=== PATIENT | male | born 1970 | race Caucasian/White ===

== ENCOUNTER 2020-09-21 06:26 | Day surgery (SDC) | payer BC ==
[~2020-09-21 06:26] MED LIST: Lactated Ringers 1,000 ML IV SCH
[2020-09-21] MEDS ORDERED: Propofol 200 MG/20 ML SDV ONE ×2 (07:02→08:27)
[2020-09-21] MEDS ORDERED: Dexamethasone 4 MG/ML 5 ML MDV ONE (07:02)
--- NOTE | 2020-09-21 07:37 | PCM.PREANE ---
Preanesthetic Assessment - Anesthesia/Transfusion/Family Hx Anesthesia History: Prior Anesthesia Without Reaction Transfusion History: No Prior Transfusion(s) - Review of Systems General: No Symptoms Pulmonary: No Symptoms Cardiovascular: No Symptoms Gastrointestinal: No Symptoms Neurological: No Symptoms Other: Reports: None - Physical Assessment NPO Status Date: 09/21/20 NPO Status Time: 00:00 Vital Signs: Last Vital Signs Temp 97.2 F 09/21/20 06:41 Pulse 68 09/21/20 06:41 Resp 16 09/21/20 06:41 BP 131/85 09/21/20 06:41 Pulse Ox 95 09/21/20 06:41 Height: 5 ft 9 in Weight: 295 lb ASA Class: 3 Mental Status: Alert & Oriented x3 Airway Class: Mallampati = 3 Dentition: Reports: Normal Dentition ROM/Head Extension: Full Lungs: Clear to Auscultation, Normal Respiratory Effort Cardiovascular: Regular Rate, Regular Rhythm - Allergies Allergies/Adverse Reactions: Allergies Allergy/AdvReac Type Severity Reaction Status Date / Time No Known Allergies Allergy Verified 09/17/20 08:29 - Acknowledgements Anesthesia Type Planned: General Anesthesia Pt an Appropriate Candidate for the Planned Anesthesia: Yes Alternatives and Risks of Anesthesia Discussed w Pt/Guardian: Yes Pt/Guardian Understands and Agrees with Anesthesia Plan: Yes PreAnesthesia Questionnaire HEENT History: Reports: Other (See Below) Other HEENT History: wears glasses Cardiovascular History: Reports: Hypertension Respiratory History: Reports: Sleep Apnea Other Respiratory History: uses CPAP Gastrointestinal History: Reports: None Genitourinary History: Reports: None Musculoskeletal History: Reports: Fracture Other Musculoskeletal History: hx fx ankle and collarbone Neurological History: Reports: None Psychiatric History: Reports: None Endocrine/Metabolic History: Reports: Obesity/BMI 30+ Hematologic History: Reports: None Immunologic History: Reports: None Oncologic (Cancer) History: Reports: None Dermatologic History: Reports: None - Past Surgical History Head Surgeries/Procedures: Reports: None HEENT Surgical History: Reports: None Cardiovascular Surgical History: Reports: None Respiratory Surgical History: Reports: None GI Surgical History: Reports: Cholecystectomy Male Surgical History: Reports: Vasectomy Endocrine Surgical History: Reports: None Neurological Surgical History: Reports: None Musculoskeletal Surgical History: Reports: None Oncologic Surgical History: Reports: None Dermatological Surgical History: Reports: None - SUBSTANCE USE Tobacco Use Status *Q: Current Every Day Tobacco User Tobacco Use Within Last Twelve Months: Cigarettes - HOME MEDS Home Medications: Home Meds Ketoconazole 1 applic HE ASDIRECTED 09/17/20 [History] - CURRENT (IN HOUSE) MEDS Current Meds: Current Medications Lactated Ringer's (Ringers, Lactated) 1,000 mls @ 125 mls/hr IV ASDIRECTED ELLIOT Last Admin: 09/21/20 06:50 Dose: 125 mls/hr Documented by: Discontinued Medications Dexamethasone (Dexamethasone 4 Mg/Ml 5 Ml Mdv) Confirm Administered Dose 20 mg .ROUTE .STK-MED ONE Stop: 09/21/20 07:03 Lidocaine HCl (Lidocaine 1% 5 Ml Sdv) Confirm Administered Dose 5 ml .ROUTE .STK-MED ONE Stop: 09/21/20 07:02 Propofol (Propofol 200 Mg/20 Ml Sdv) Confirm Administered Dose 400 mg .ROUTE .STK-MED ONE Stop: 09/21/20 07:03
[2020-09-21] MEDS ORDERED: Lactated Ringers 1,000 ML IV SCH (08:45)
--- NOTE | 2020-09-21 08:48 | PCM.OPNOTE ---
- General Post-Op/Procedure Note Date of Surgery/Procedure: 09/21/20 Operative Procedure(s): Colonoscopy with cold distal transverse colon, proximal descending colon and rectal polypectomies. Pre Op Diagnosis: Desire for colorectal cancer screening Post-Op Diagnosis: Distal transverse colon, proximal descending colon and rectal polyps. Anesthesia Technique: MAC (ASA III) Primary Surgeon: Murray Mejia Condition: Good Free Text/Narrative:: DICTATION [id number] CPT CODE 12283
--- NOTE | 2020-09-21 08:52 | PCM.POSTAN ---
POST ANESTHESIA ASSESSMENT - MENTAL STATUS Mental Status: Alert, Oriented - VITAL SIGNS Vital Signs: Last Vital Signs Temp 97.2 F 09/21/20 06:41 Pulse 62 09/21/20 08:48 Resp 14 09/21/20 08:48 BP 125/71 09/21/20 08:48 Pulse Ox 93 L 09/21/20 08:48 - RESPIRATORY Respiratory Status: Respiratory Rate WNL, Airway Patent, O2 Saturation Stable - CARDIOVASCULAR CV Status: Pulse Rate WNL, Blood Pressure Stable - GASTROINTESTINAL GI Status: No Symptoms - POST OP HYDRATION Hydration Status: Adequate & Stable
--- NOTE | 2020-09-21 08:52 | PCM48HPAN ---
Post Anesthesia Note - EVALUATION WITHIN 48HRS OF ANESTHETIC Vital Signs in Normal Range: Yes Patient Participated in Evaluation: Yes Respiratory Function Stable: Yes Airway Patent: Yes Cardiovascular Function Stable: Yes Hydration Status Stable: Yes Pain Control Satisfactory: Yes Nausea and Vomiting Control Satisfactory: Yes Mental Status Recovered: Yes Vital Signs: Last Vital Signs Temp 97.2 F 09/21/20 06:41 Pulse 62 09/21/20 08:48 Resp 14 09/21/20 08:48 BP 125/71 09/21/20 08:48 Pulse Ox 93 L 09/21/20 08:48
--- NOTE | 2020-09-21 10:29 | OR ---
SURGEON: Murray Mejia M.D. DATE OF PROCEDURE: 09/21/2020 OPERATION PERFORMED: Colonoscopy with cold distal transverse colon, proximal descending colon, and rectal polypectomy. PRIMARY SURGEON: Murray Mejia MD ANESTHESIA: MAC. ASA CLASSIFICATION: III. PREOPERATIVE DIAGNOSIS: Desire for colorectal cancer screening. POSTOPERATIVE DIAGNOSES: 1. Distal transverse colon polyp. 2. Proximal descending colon polyp. 3. Rectal polyp. DESCRIPTION OF PROCEDURE: The patient was taken to the endoscopy room and positioned on the endoscopy table in the left lateral decubitus position. Time-out was called for appropriate identification of patient and procedure. Monitored anesthesia care was provided. Colonoscope was inserted into the rectum and advanced with minimal difficulty to the cecum. The cecum was identified by internal landmarks and external pressure. The colonoscope was retroflexed to visualize the ascending colon from below, then straightened, and slowly withdrawn. The cecum, ascending colon, and proximal and mid transverse colon showed no tumors, polyps, diverticula, or angiodysplastic changes. One polyp was encountered in the distal transverse colon and removed with cold biopsy forceps. A second polyp was encountered in the proximal descending colon and removed with cold biopsy forceps. The remainder of the descending colon and sigmoid colon showed no tumors, polyps, diverticula, or angiodysplastic changes. Once the colonoscope was withdrawn to the rectum, another polyp was encountered and again removed with cold biopsy forceps. The colonoscope was then withdrawn to the distal rectum and retroflexed to visualize the anal orifice from above. No tumors, polyps, or acute hemorrhoidal changes were noted. The colonoscope was then straightened, the rectum aspirated, and the colonoscope removed. The patient tolerated the procedure well and was taken to recovery room in stable condition. ALEJANDRO / QUINN /[id number]
== END 2020-09-21 09:20 | disposition home or self-care (01) ==
LOC: MW.SDS 06:26
PROVIDERS: ATTEND Surgery
DX: Z12.11 Encounter for screening for malignant neoplasm of colon (principal); D12.4 Benign neoplasm of descending colon; K62.1 Rectal polyp; I10 Essential (primary) hypertension; G47.30 Sleep apnea, unspecified; E66.01 Morbid (severe) obesity due to excess calories; F41.9 Anxiety disorder, unspecified; F17.210 Nicotine dependence, cigarettes, uncomplicated; Z79.899 Other long term (current) drug therapy; Z98.890 Other specified postprocedural states; Z68.41 Body mass index [BMI] 40.0-44.9, adult
CPT/HCPCS: 45380; 88305; J1100; J2704; J7120; 00812

== ENCOUNTER 2020-11-12 10:13 | Emergency (ER) | payer BC ==
[2020-11-12 13:07] LABS: BLOOD UREA NITROGEN,BUN 12 mg/dL (7.0-18.0); CARBON DIOXIDE,CO2 27.4 mmol/L (21.0-32.0); CHLORIDE,CL 103 mmol/L (98-107); GLUCOSE RANDOM 111 mg/dL (74-106); POTASSIUM,K 3.5 mmol/L (3.5-5.1); SODIUM,NA 142 mmol/L (136-148)
--- NOTE | 2020-11-12 13:07 | EDM.PDOC ---
ED HPI GENERAL MEDICAL PROBLEM - General Chief Complaint: General Stated Complaint: LFT SIDE PAIN AND ALMOST PASSED OUT Time Seen by Provider: 11/12/20 13:03 Source of Information: Reports: Patient History Limitations: Reports: No Limitations - History of Present Illness INITIAL COMMENTS - FREE TEXT/NARRATIVE: HISTORY AND PHYSICAL: History of present illness: Patient is a 50-year-old male who presents to the emergency room with complaints of left flank and side pain. He states pain started all of a sudden just a few hours prior to arrival and stated "it was so bad I almost passed out". He reports he felt diaphoretic and nauseated. Currently states the pain is bearable but now has the flank tenderness and feels like it is radiating into his left mid abdomen. Denies any injury, trauma or falls. Patient denies any fever, chills, headache, change in vision, syncope or near syncope. Denies any chest pain, shortness of breath or cough. Denies any vomiting, diarrhea, constipation or dysuria. Denies any testicular pain, redness or tenderness. Has not noted any blood in urine or stool. Patient has been eating and drinking appropriately. Review of systems: As per history of present illness and below otherwise all systems reviewed and negative. Past medical history: As per history of present illness and as reviewed below otherwise noncontributory. Surgical history: As per history of present illness and as reviewed below otherwise noncontributory. Social history: See social history for further information Family history: As per history of present illness and as reviewed below otherwise noncontributory. Physical exam: General: Well developed and well nourished 50 year old male. Alert and orientated x 3. Nontoxic in appearance and in no acute distress. Vital signs are stable and have been reviewed by me. Nursing notes were reviewed. HEENT: Atraumatic, normocephalic, pupils equal and reactive bilaterally, negative for conjunctival pallor or scleral icterus, mucous membranes moist, trachea midline. No drooling or trismus noted. No meningeal signs. No hot potato voice noted. Lungs: Clear to auscultation bilaterally. No wheezes, rales, or rhonchi. Chest nontender. Normal work of breathing, no accessory muscles used. Heart: S1S2, regular rate and rhythm without overt murmur, gallops, or rubs. No JVD. No peripheral edema Abdomen: Soft, nondistended, nontender. Normoactive bowel sounds. Negative for masses. Left sided costovertebral tenderness. Skin: Intact, warm, dry. No lesions or rashes noted. Hematologic: No petechiae or purpra. Mucosa appropriate color and normal nail bed color and refill. Extremities: Atraumatic, moves all extremities per self without difficulty or deficits, negative for cords or calf pain. Neurovascular unremarkable. Neuro: Awake, alert, oriented. Cranial nerves II through XII unremarkable. Cerebellum unremarkable. Motor and sensory unremarkable throughout. Exam nonfocal. Psychiatric: Mood and affect are appropriate. Normal thought process. Answering questions appropriately. Please note that the patient was seen and evaluated during the 2019 SARS-CoV-2 novel coronavirus pandemic period. Community viral transmission is ongoing at time of this encounter and the emergency department is operating under pandemic response procedures. Medical Decision Making: Patient is a 50-year-old male who presents to the emergency room with complaints of left sided flank pain. When pain first started he states it was severe, states it is now tolerable and is improving. The emergency room is very busy, I did briefly look at him during the triage process and was able to put orders in. Upon his placement in the emergency department he states his pain is improved. I do note that he has blood in his urine, will do a CT of the abdomen and pelvis to rule out kidney stone. Patient declines wanting anything for pain or nausea at this time. CT of the abdomen and pelvis shows a 5 mm obstructing stone in the proximal left ureter with minimal left pelvocaliectasis. Urine shows hematuria with 0-1 WBC and +[address] on doxycycline. I have talked with the patient about today's findings, in addition to providing specific details for plan of care. Reassessment at the time of disposition demonstrates that the patient is in no acute distress. The patient is stable for discharge, counseling was provided and we discussed in great detail signs and symptoms that would prompt them to return to the Emergency Department. I did give him local phone numbers for follow-up with urology. Urine strainer with education was given. Medication, follow up and supportive care measures were reviewed and discussed. Voices understanding and is agreeable to plan of care. Denies any further questions or concerns at this time. Diagnostics: CBC, CMP, UA, CT abdomen and pelvis Therapeutics: Flomax Prescription: Flomax, Doxycylcine, [place], Zofran Impression: Kidney stone, left Plan: 1. You were evaluated today on an emergent basis. Your CT shows a 5mm kidney stone on the left. Please call Urology to set up a follow up appointment. Increase your oral fluids. Take your medications as directed. 2. You can alternate Tylenol and ibuprofen as needed for pain and fever management. 3. We encourage you to follow up with your primary care provider and/or recommended specialist in the next few days for re-evaluation and further care/management. 4. If your symptoms should worsen, new symptoms develop or any of the signs and symptoms we discussed should arise please return to the emergency room or call [phone] (if needed). Definitive disposition and diagnosis as appropriate pending reevaluation and review of above. left side Pain Score (Numeric/FACES): 7 - Related Data Allergies Allergy/AdvReac Type Severity Reaction Status Date / Time No Known Allergies Allergy Verified 11/12/20 10:28 Home Meds: Home Meds Ketoconazole 1 applic HE ASDIRECTED 09/17/20 [History] Doxycycline [Vibra-Tabs] 100 mg PO Q12HR 7 Days #14 tab 11/12/20 [Rx] Hydrocodone/Acetaminophen [HYDROcodone-Acetaminophen 5-325 MG] 1 - 2 tab PO Q4HR PRN #20 tablet 11/12/20 [Rx] Ondansetron [Zofran ODT] 4 mg PO Q6H PRN #8 tab.dis 11/12/20 [Rx] PARoxetine [Paxil] 20 mg PO DAILY 11/12/20 [History] Tamsulosin [Tamsulosin 24 Hr] 0.4 mg PO DAILY 5 Days #5 cap.er 11/12/20 [Rx] Past Medical History HEENT History: Reports: Other (See Below) Other HEENT History: wears glasses Cardiovascular History: Reports: Hypertension Respiratory History: Reports: Sleep Apnea Other Respiratory History: uses CPAP Gastrointestinal History: Reports: None Genitourinary History: Reports: None Musculoskeletal History: Reports: Fracture Other Musculoskeletal History: hx fx ankle and collarbone Neurological History: Reports: None Psychiatric History: Reports: None Endocrine/Metabolic History: Reports: Obesity/BMI 30+ Hematologic History: Reports: None Immunologic History: Reports: None Oncologic (Cancer) History: Reports: None Dermatologic History: Reports: None - Infectious Disease History Infectious Disease History: Reports: Chicken Pox - Past Surgical History Head Surgeries/Procedures: Reports: None HEENT Surgical History: Reports: None Cardiovascular Surgical History: Reports: None Respiratory Surgical History: Reports: None GI Surgical History: Reports: Cholecystectomy Male Surgical History: Reports: Vasectomy Endocrine Surgical History: Reports: None Neurological Surgical History: Reports: None Musculoskeletal Surgical History: Reports: None Oncologic Surgical History: Reports: None Dermatological Surgical History: Reports: None Social & Family History - Family History Family Medical History: No Pertinent Family History - Tobacco Use Tobacco Use Status *Q: Current Every Day Tobacco User Years of Tobacco use: 30 Packs/Tins Daily: 1 - Recreational Drug Use Recreational Drug Use: No ED ROS GENERAL - Review of Systems Review Of Systems: Comprehensive ROS is negative, except as noted in HPI. ED EXAM, GENERAL - Physical Exam Exam: See Below (See dictation) Course - Vital Signs Last Recorded V/S: Last Vital Signs Temp 97 F 11/12/20 14:50 Pulse 70 11/12/20 14:50 Resp 18 11/12/20 14:50 BP 147/90 H 11/12/20 14:50 Pulse Ox 95 11/12/20 14:50 - Orders/Labs/Meds Orders: Active Orders 24 hr Category Date Time Status CULTURE URINE [MREF] Stat Lab 11/12/20 11:40 Received Labs: Laboratory Tests 11/12/20 11/12/20 11/12/20 Range/Units 11:40 12:13 12:13 WBC 9.68 (4.0-11.0) K/uL RBC 5.47 (4.50-5.90) M/uL Hgb 17.4 H (13.0-17.0) g/dL Hct 48.4 (38.0-50.0) % MCV 88.5 (80.0-98.0) fL MCH 31.8 (27.0-32.0) pg MCHC 36.0 (31.0-37.0) g/dL RDW Std Deviation 41.1 (28.0-62.0) fl RDW Coeff of Imani 13 (11.0-15.0) % Plt Count 250 (150-400) K/uL MPV 10.20 (7.40-12.00) fL Neut % (Auto) 79.0 (48.0-80.0) % Lymph % (Auto) 13.1 L (16.0-40.0) % Reynolds % (Auto) 7.3 (0.0-15.0) % Eos % (Auto) 0.3 (0.0-7.0) % Baso % (Auto) 0.3 (0.0-1.5) % Neut # (Auto) 7.6 H (1.4-5.7) K/uL Lymph # (Auto) 1.3 (0.6-2.4) K/uL Reynolds # (Auto) 0.7 (0.0-0.8) K/uL Eos # (Auto) 0.0 (0.0-0.7) K/uL Baso # (Auto) 0.0 (0.0-0.1) K/uL Nucleated RBC % 0.0 /100WBC Nucleated RBCs # 0 K/uL Sodium 142 (136-148) mmol/L Potassium 3.5 (3.5-5.1) mmol/L Chloride 103 (98-107) mmol/L Carbon Dioxide 27.4 (21.0-32.0) mmol/L BUN 12 (7.0-18.0) mg/dL Creatinine 1.1 (0.8-1.3) mg/dL Est Cr Clr Drug Dosing 80.34 mL/min Estimated GFR (MDRD) > 60.0 ml/min Glucose 111 H (74-106) mg/dL Calcium 9.0 (8.5-10.1) mg/dL Total Bilirubin 0.7 (0.2-1.0) mg/dL AST 31 (15-37) IU/L ALT 50 (14-63) IU/L Alkaline Phosphatase 136 H (46-116) U/L Total Protein 8.7 H (6.4-8.2) g/dL Albumin 4.1 (3.4-5.0) g/dL Globulin 4.6 H (2.6-4.0) g/dL Albumin/Globulin Ratio 0.9 (0.9-1.6) Urine Color YELLOW Urine Appearance CLOUDY Urine pH 6.5 (5.0-8.0) Ur Specific [place] 1.025 (1.001-1.035) Urine Protein 30 H (NEGATIVE) mg/dL Urine Glucose (UA) NEGATIVE (NEGATIVE) mg/dL Urine Ketones 40 H (NEGATIVE) mg/dL Urine Occult Blood LARGE H (NEGATIVE) Urine Nitrite NEGATIVE (NEGATIVE) Urine Bilirubin SMALL H (NEGATIVE) Urine Ictotest NEGATIVE Urine Urobilinogen 1.0 (<2.0) EU/dL Ur Leukocyte Esterase TRACE H (NEGATIVE) Urine RBC >100 (0-2/HPF) Urine WBC 0-1 (0-5/HPF) Ur Epithelial Cells RARE (NONE-FEW) Urine Bacteria 2+ H (NEGATIVE) Urine Mucus LIGHT (NONE-MOD) Meds: Medications Discontinued Medications Generic Name Dose Route Start Last Admin Trade Name Freq PRN Reason Stop Dose Admin Tamsulosin HCl 0.4 mg 11/12/20 14:34 11/12/20 14:42 Tamsulosin 0.4 Mg Cap.Er PO 11/12/20 14:35 0.4 mg ONETIME ONE Administration Departure - Departure Time of Disposition: 14:37 Disposition: Home, Self-Care 01 Clinical Impression: Kidney stone on left side - Discharge Information Prescriptions: Tamsulosin [Tamsulosin 24 Hr] 0.4 mg PO DAILY 5 Days #5 cap.er Hydrocodone/Acetaminophen [HYDROcodone-Acetaminophen 5-325 MG] 1 - 2 tab PO Q4HR PRN #20 tablet PRN Reason: Pain (Moderate 4-6) Doxycycline [Vibra-Tabs] 100 mg PO Q12HR 7 Days #14 tab Ondansetron [Zofran ODT] 4 mg PO Q6H PRN #8 tab.dis PRN Reason: Nausea Instructions: Kidney Stones, [id number] Referrals: Bubba Ponce MD [Primary Care Provider] - Forms: ED Department Discharge Additional Instructions: The following information is given to patients seen in the emergency department who are being discharged to home. This information is to outline your options for follow-up care. We provide all patients seen in our emergency department with a follow-up referral. The need for follow-up, as well as the timing and circumstances, are variable depending upon the specifics of your emergency department visit. If you don't have a primary care physician on staff, we will provide you with a referral. We always advise you to contact your personal physician following an emergency department visit to inform them of the circumstance of the visit and for follow-up with them and/or the need for any referrals to a consulting specialist. The emergency department will also refer you to a specialist when appropriate. This referral assures that you have the opportunity for follow-up care with a specialist. All of these measure are taken in an effort to provide you with optimal care, which includes your follow-up. Under all circumstances we always encourage you to contact your private physician who remains a resource for coordinating your care. When calling for follow-up care, please make the office aware that this follow-up is from your recent emergency room visit. If for any reason you are refused follow-up, please contact the [facility] Emergency Department at and asked to speak to the emergency department charge nurse. Dr. Garrett and Dr Jasso [facility] [address] [place] [address] (Located on 5th Floor) [place] [address] [facility] [address] [place] [id number] [address] Gold Calderon [facility] [id number] [address] Harry Davis [facility] [address] [place] [address] Thank you for choosing the [facility] emergency department in [place] for your medical needs today. It was a pleasure caring for you. Today you were seen in the emergency department for kidney stone. 1. You were evaluated today on an emergent basis. Your CT shows a 5mm kidney stone on the left. Please call Urology to set up a follow up appointment. Increase your oral fluids. Take your medications as directed. 2. You can alternate Tylenol and ibuprofen as needed for pain and fever management. 3. We encourage you to follow up with your primary care provider and/or rona mmended specialist in the next few days for re-evaluation and further care/management. 4. If your symptoms should worsen, new symptoms develop or any of the signs and symptoms we discussed should arise please return to the emergency room or call 911 (if needed). Sepsis Event Note (ED) - Evaluation Sepsis Screening Result: No Definite Risk - Focused Exam Vital Signs: Vital Signs Temp Pulse Resp BP Pulse Ox 11/12/20 14:50 97 F 70 18 147/90 H 95 11/12/20 13:32 97 F 61 18 162/97 H 97 11/12/20 10:26 96.6 F L 65 18 113/66 98 - My Orders Last 24 Hours: My Active Orders 11/12/20 11:40 CULTURE URINE [MREF] Stat - Assessment/Plan Last 24 Hours: My Active Orders 11/12/20 11:40 CULTURE URINE [MREF] Stat
--- NOTE | 2020-11-12 14:30 | CT ---
INDICATION: Left-sided abdominal pain, hematuria. TECHNIQUE: CT of the abdomen and pelvis without intravenous contrast. Coronal and sagittal reconstructions. COMPARISON: CT of the abdomen and pelvis 01/24/2020. FINDINGS: The unenhanced liver, spleen, pancreas, and adrenal glands are normal in appearance. Cholecystectomy. No biliary dilation. There is a 5 mm obstructing stone in the proximal left ureter with minimal left pelvocaliectasis (series 201 image 92 and series 203, image 74). This represents migration of the previously seen left lower pole caliceal stone. A previously seen tiny right caliceal stone is no longer present. No right hydronephrosis or ureteral dilation. Underdistended urinary bladder. Prostate calcifications. No bowel dilation. Negative appendix. No intraperitoneal free air or fluid. No lymphadenopathy. Endplate spurring in the lower thoracic spine. The lung bases are clear. IMPRESSION: 5 mm obstructing stone in the proximal left ureter with minimal left pelvocaliectasis. Please note that all CT scans at this facility use dose modulation, iterative reconstruction, and/or weight-based dosing when appropriate to reduce radiation dose to as low as reasonably achievable. Dictated by Kinjal Duque MD @ 11/12/2020 2:28:31 PM (Electronically Signed)
[2020-11-12] MEDS ORDERED: Tamsulosin 0.4 MG Cap.ER PO ONE (14:34)
== END 2020-11-12 14:53 | disposition home or self-care (01) ==
LOC: MW.ED 10:13
DX: N20.0 Calculus of kidney (principal); I10 Essential (primary) hypertension; E66.9 Obesity, unspecified; Z68.41 Body mass index [BMI] 40.0-44.9, adult; Z72.0 Tobacco use
CPT/HCPCS: 36415; 74176; 80053; 81001; 85025; 87086; 99284; A9270

== ENCOUNTER 2021-02-09 13:03 | Emergency (ER) | payer BC ==
[2021-02-09] MEDS ORDERED: Aspirin 81 MG Tab.Chew PO ONE (13:12)
[2021-02-09] MEDS ORDERED: Morphine 4 MG/ML VIAL IVPUSH ONE ×2 (13:12→14:40)
[2021-02-09 13:39] LABS: BLOOD UREA NITROGEN,BUN 18 mg/dL (7.0-18.0); CARBON DIOXIDE,CO2 28.1 mmol/L (21.0-32.0); CHLORIDE,CL 102 mmol/L (98-107); GLUCOSE RANDOM 86 mg/dL (74-106); LIPASE 234 U/L (73-393); POTASSIUM,K 3.6 mmol/L (3.5-5.1); SODIUM,NA 139 mmol/L (136-148)
--- NOTE | 2021-02-09 14:09 | EDM.PDOC ---
ED HPI GENERAL MEDICAL PROBLEM - General Chief Complaint: Chest Pain Stated Complaint: CHEST PAINS Time Seen by Provider: 02/09/21 13:45 Source of Information: Reports: Patient History Limitations: Reports: No Limitations - History of Present Illness INITIAL COMMENTS - FREE TEXT/NARRATIVE: Patient is a 50-year-old male who presents today for epigastric pain. Patient is a pain been bothering him since yesterday has had some nausea vomiting discomfort after he has some follow lettuce that has been recalled. Became concerned when the pain became more intense. When he arrived he was slightly diaphoretic. The pain was reproducible on exam. Denies any shortness of breath fever chills leg swelling or other complaints. Took some Tylenol did not relieve the pain. Chest Pain Pain Score (Numeric/FACES): 8 - Related Data Allergies Allergy/AdvReac Type Severity Reaction Status Date / Time No Known Allergies Allergy Verified 02/09/21 13:06 Home Meds: Home Meds . [No Known Home Meds] 02/09/21 [History] Past Medical History HEENT History: Reports: Other (See Below) Other HEENT History: wears glasses Cardiovascular History: Reports: Hypertension Respiratory History: Reports: Sleep Apnea Other Respiratory History: uses CPAP Gastrointestinal History: Reports: None Genitourinary History: Reports: None Musculoskeletal History: Reports: Fracture Other Musculoskeletal History: hx fx ankle and collarbone Neurological History: Reports: None Psychiatric History: Reports: None Endocrine/Metabolic History: Reports: Obesity/BMI 30+ Hematologic History: Reports: None Immunologic History: Reports: None Oncologic (Cancer) History: Reports: None Dermatologic History: Reports: None - Infectious Disease History Infectious Disease History: Reports: Chicken Pox - Past Surgical History Head Surgeries/Procedures: Reports: None HEENT Surgical History: Reports: None Cardiovascular Surgical History: Reports: None Respiratory Surgical History: Reports: None GI Surgical History: Reports: Cholecystectomy Male Surgical History: Reports: Vasectomy Endocrine Surgical History: Reports: None Neurological Surgical History: Reports: None Musculoskeletal Surgical History: Reports: None Oncologic Surgical History: Reports: None Dermatological Surgical History: Reports: None Social & Family History - Family History Family Medical History: No Pertinent Family History - Tobacco Use Tobacco Use Status *Q: Current Every Day Tobacco User Years of Tobacco use: 20 Packs/Tins Daily: 1 - Caffeine Use Caffeine Use: Reports: Tea - Recreational Drug Use Recreational Drug Use: No ED ROS GENERAL - Review of Systems Review Of Systems: See Below Constitutional: Reports: No Symptoms HEENT: Reports: No Symptoms Respiratory: Reports: No Symptoms Cardiovascular: Reports: No Symptoms Endocrine: Reports: No Symptoms GI/Abdominal: Reports: Abdominal Pain : Reports: No Symptoms Musculoskeletal: Reports: No Symptoms Skin: Reports: No Symptoms Neurological: Reports: No Symptoms Psychiatric: Reports: No Symptoms Hematologic/Lymphatic: Reports: No Symptoms Immunologic: Reports: No Symptoms ED EXAM, GENERAL - Physical Exam Exam: See Below Exam Limited By: No Limitations General Appearance: Alert, WD/WN, No Apparent Distress Throat/Mouth: Normal Inspection Head: Atraumatic, Normocephalic Neck: Normal Inspection, Supple, Non-Tender Respiratory/Chest: No Respiratory Distress, Lungs Clear, Normal Breath Sounds Cardiovascular: Normal Peripheral Pulses, Regular Rate, Rhythm GI/Abdominal: Normal Bowel Sounds, Soft, Non-Tender Rectal (Males) Exam: Normal Exam Extremities: Normal Inspection Neurological: Alert, Oriented, Normal Cognition, Normal Gait #1 Interpretation EKG Date: 02/09/21 Time: 13:03 Rhythm: NSR Rate (Beats/Min): 81 ST-T: Normal Course - Vital Signs Last Recorded V/S: Last Vital Signs Temp 98.1 F 02/09/21 15:58 Pulse 71 02/09/21 15:58 Resp 18 02/09/21 15:58 BP 127/75 02/09/21 15:58 Pulse Ox 96 02/09/21 15:58 - Orders/Labs/Meds Orders: Active Orders 24 hr Category Date Time Status STOOL CULTURE/SHIGA TOXIN [MREF] Stat Lab 02/09/21 13:17 Received Labs: Laboratory Tests 02/09/21 02/09/21 02/09/21 Range/Units 13:09 13:09 13:09 WBC 13.07 H (4.0-11.0) K/uL RBC 5.43 (4.50-5.90) M/uL Hgb 17.2 H (13.0-17.0) g/dL Hct 49.1 (38.0-50.0) % MCV 90.4 (80.0-98.0) fL MCH 31.7 (27.0-32.0) pg MCHC 35.0 (31.0-37.0) g/dL RDW Std Deviation 42.7 (28.0-62.0) fl RDW Coeff of Imani 13 (11.0-15.0) % Plt Count 250 (150-400) K/uL MPV 9.60 (7.40-12.00) fL Neut % (Auto) 65.9 (48.0-80.0) % Lymph % (Auto) 23.5 (16.0-40.0) % Carolina % (Auto) 8.0 (0.0-15.0) % Eos % (Auto) 2.4 (0.0-7.0) % Baso % (Auto) 0.2 (0.0-1.5) % Neut # (Auto) 8.6 H (1.4-5.7) K/uL Lymph # (Auto) 3.1 H (0.6-2.4) K/uL Carolina # (Auto) 1.0 H (0.0-0.8) K/uL Eos # (Auto) 0.3 (0.0-0.7) K/uL Baso # (Auto) 0.0 (0.0-0.1) K/uL Nucleated RBC % 0.0 /100WBC Nucleated RBCs # 0 K/uL Sodium 139 (136-148) mmol/L Potassium 3.6 (3.5-5.1) mmol/L Chloride 102 (98-107) mmol/L Carbon Dioxide 28.1 (21.0-32.0) mmol/L BUN 18 (7.0-18.0) mg/dL Creatinine 1.0 (0.8-1.3) mg/dL Est Cr Clr Drug Dosing 88.38 mL/min Estimated GFR (MDRD) > 60.0 ml/min Glucose 86 (74-106) mg/dL Calcium 8.6 (8.5-10.1) mg/dL Phosphorus 3.5 (2.6-4.7) mg/dL Magnesium 2.4 (1.8-2.4) mg/dL Total Bilirubin 0.8 (0.2-1.0) mg/dL AST 50 H (15-37) IU/L ALT 59 (14-63) IU/L Alkaline Phosphatase 119 H (46-116) U/L Creatine Kinase 97 (26-308) U/L Troponin I < 0.050 (0.000-0.056) ng/mL Total Protein 8.2 (6.4-8.2) g/dL Albumin 3.9 (3.4-5.0) g/dL Globulin 4.3 H (2.6-4.0) g/dL Albumin/Globulin Ratio 0.9 (0.9-1.6) Lipase 234 (73-393) U/L Ethyl Alcohol < 3.0 mg/dL Influenza Type A RNA NEGATIVE (NEGATIVE) Influenza Type B RNA NEGATIVE (NEGATIVE) SARS-CoV-2 RNA (YAMEL) NEGATIVE (NEGATIVE) 02/09/21 Range/Units 15:29 WBC (4.0-11.0) K/uL RBC (4.50-5.90) M/uL Hgb (13.0-17.0) g/dL Hct (38.0-50.0) % MCV (80.0-98.0) fL MCH (27.0-32.0) pg MCHC (31.0-37.0) g/dL RDW Std Deviation (28.0-62.0) fl RDW Coeff of Imani (11.0-15.0) % Plt Count (150-400) K/uL MPV (7.40-12.00) fL Neut % (Auto) (48.0-80.0) % Lymph % (Auto) (16.0-40.0) % Carolina % (Auto) (0.0-15.0) % Eos % (Auto) (0.0-7.0) % Baso % (Auto) (0.0-1.5) % Neut # (Auto) (1.4-5.7) K/uL Lymph # (Auto) (0.6-2.4) K/uL Carolina # (Auto) (0.0-0.8) K/uL Eos # (Auto) (0.0-0.7) K/uL Baso # (Auto) (0.0-0.1) K/uL Nucleated RBC % /100WBC Nucleated RBCs # K/uL Sodium (136-148) mmol/L Potassium (3.5-5.1) mmol/L Chloride (98-107) mmol/L Carbon Dioxide (21.0-32.0) mmol/L BUN (7.0-18.0) mg/dL Creatinine (0.8-1.3) mg/dL Est Cr Clr Drug Dosing mL/min Estimated GFR (MDRD) ml/min Glucose (74-106) mg/dL Calcium (8.5-10.1) mg/dL Phosphorus (2.6-4.7) mg/dL Magnesium (1.8-2.4) mg/dL Total Bilirubin (0.2-1.0) mg/dL AST (15-37) IU/L ALT (14-63) IU/L Alkaline Phosphatase (46-116) U/L Creatine Kinase (26-308) U/L Troponin I < 0.050 (0.000-0.056) ng/mL Total Protein (6.4-8.2) g/dL Albumin (3.4-5.0) g/dL Globulin (2.6-4.0) g/dL Albumin/Globulin Ratio (0.9-1.6) Lipase (73-393) U/L Ethyl Alcohol mg/dL Influenza Type A RNA (NEGATIVE) Influenza Type B RNA (NEGATIVE) SARS-CoV-2 RNA (YAMEL) (NEGATIVE) Meds: Medications Discontinued Medications Generic Name Dose Route Start Last Admin Trade Name Freq PRN Reason Stop Dose Admin Aspirin 324 mg 02/09/21 13:12 02/09/21 13:17 Aspirin 81 Mg Tab.Chew PO 02/09/21 13:13 324 mg ONETIME ONE Administration Iopamidol 100 ml 02/09/21 16:44 02/09/21 16:44 Iopamidol 755 Mg/Ml 500 Ml Multipack Bottle IVPUSH 02/09/21 16:45 100 ml ONETIME ONE Administration Ketorolac Tromethamine 30 mg 02/09/21 14:43 02/09/21 14:48 Ketorolac 30 Mg/Ml Sdv IVPUSH 02/09/21 14:44 30 mg ONETIME ONE Administration Morphine Sulfate 4 mg 02/09/21 13:12 02/09/21 13:17 Morphine 4 Mg/Ml Vial IVPUSH 02/09/21 13:13 4 mg ONETIME ONE Administration Morphine Sulfate 4 mg 02/09/21 14:40 02/09/21 14:55 Morphine 4 Mg/Ml Vial IVPUSH 02/09/21 14:41 Not Given ONETIME ONE - Re-Assessments/Exams Free Text/Narrative Re-Assessment/Exam: 02/09/21 16:08 Seems to have abdominal pain central still pending will do CT scan abdomen pelvis while tropes pending. 02/09/21 17:25 Pt has a kidney stone likely cause of pain patient to be discharged home. Departure - Departure Time of Disposition: 17:26 Disposition: Home, Self-Care 01 Condition: Good Clinical Impression: Kidney stone Instructions: Kidney Stones, [id number] Referrals: Bubba Ponce MD [Primary Care Provider] - Forms: ED Department Discharge Additional Instructions: You are seen today for abdominal pain that was found to be a kidney stone. This is likely the cause of the pain. Continue to take Tylenol Motrin as needed for the pain. We have placed a number for urology as below that you can see as needed otherwise follow-up to primary care physician. The following information is given to patients seen in the emergency department who are being discharged to home. This information is to outline your options for follow-up care. We provide all patients seen in our emergency department with a follow-up referral. The need for follow-up, as well as the timing and circumstances, are variable depending upon the specifics of your emergency department visit. If you don't have a primary care physician on staff, we will provide you with a referral. We always advise you to contact your personal physician following an emergency department visit to inform them of the circumstance of the visit and for follow-up with them and/or the need for any referrals to a consulting specialist. The emergency department will also refer you to a specialist when appropriate. This referral assures that you have the opportunity for follow-up care with a specialist. All of these measure are taken in an effort to provide you with optimal care, which includes your follow-up. Under all circumstances we always encourage you to contact your private physician who remains a resource for coordinating your care. When calling for follow-up care, please make the office aware that this follow-up is from your recent emergency room visit. If for any reason you are refused follow-up, please contact the [facility] Emergency Department at and asked to speak to the emergency department charge nurse. Please follow up with your primary care physician. If you do not have a primary care physician, see below: [facility] [phone] Location [address], [place] [address] [address] Sepsis Event Note (ED) - Evaluation Sepsis Screening Result: No Definite Risk - Focused Exam Vital Signs: Vital Signs Temp Pulse Resp BP Pulse Ox 02/09/21 15:58 98.1 F 71 18 127/75 96 02/09/21 15:05 74 16 113/73 97 02/09/21 14:05 75 16 124/69 96 02/09/21 13:07 97.0 F 74 20 151/94 H 99 - My Orders Last 24 Hours: My Active Orders 02/09/21 13:17 STOOL CULTURE/SHIGA TOXIN [MREF] Stat - Assessment/Plan Last 24 Hours: My Active Orders 02/09/21 13:17 STOOL CULTURE/SHIGA TOXIN [MREF] Stat Plan: Patient is a 50-year-old male came in today for epigastric pain. Patient had reproducible pain on exam but is concerned because he was diaphoretic. We did a EKG and patient sinus tach no ST elevations. Will obtain troponins and reassess patient.
[2021-02-09 14:16] LABS: CORONAVIRUS COVID-19 NAA NEGATIVE (NEGATIVE); INFLUENZA A NAA NEGATIVE (NEGATIVE); INFLUENZA B NAA NEGATIVE (NEGATIVE)
[2021-02-09] MEDS ORDERED: Ketorolac 30 MG/ML SDV IVPUSH ONE (14:43)
--- NOTE | 2021-02-09 14:50 | CR ---
INDICATION: Chest pain COMPARISON: none TECHNIQUE: Portable chest performed at 1:59 p.m. FINDINGS: The lungs are clear. There is no evidence of pneumothorax. The heart, mediastinum and pulmonary vessels are of normal size. There is no evidence of pleural fluid. IMPRESSION: Negative chest. Dictated by Paulie Monk MD @ 02/09/2021 2:48:09 PM (Electronically Signed)
[2021-02-09] MEDS ORDERED: Iopamidol 755 MG/ML 500 ML Multipack Bottle IVPUSH ONE (16:44)
--- NOTE | 2021-02-09 17:25 | CT ---
HISTORY: Epigastric/suprapubic abdominal pain. COMPARISON: 11/12/2020. TECHNIQUE: CT of the abdomen and pelvis. Coronal/sagittal reconstruction images. 100 cc of [id number] IV. FINDINGS: Lung bases: There is no pleural or pericardial effusion. The heart size is normal. There is no acute airspace disease. There is dependent atelectasis. There is no basilar pneumothorax or suspicious pulmonary nodule. Abdomen/pelvis: No solid hepatic mass. Cholecystectomy. No perihepatic ascites. Mild dilation of intrahepatic biliary radicals, likely reservoir effect. No hydronephrosis, solid mass, or perinephric fluid collection. Benign left renal cysts. No pancreatic mass, pancreatic duct dilation, or glandular atrophy. No adrenal mass. Spleen size is normal. There is a stone present in the left distal ureter, just proximal to the left UVJ. This measures 5 millimeters in dimension. This may represent the same stone present in the left proximal ureter on the prior CT from 11/12/2020. The perivesical fat/extraperitoneal space of Retzius are within normal limits. There is a contralateral calcification, which is consistent with a phlebolith. This is unchanged in position when compared with 11/12/2020. There is no free intraperitoneal air. There is no mural thickening or perienteric edema. There is no evidence for a small bowel or colonic obstruction. No transition point. No evidence for appendicitis. Nonenlarged inguinal lymph nodes. No pelvic sidewall, retroperitoneal, or gastrohepatic ligament adenopathy. Visceral artery branches are patent. The bone windows demonstrate small sclerotic foci within the proximal femoral, likely benign bone islands. No suspicious bone lesions are seen. Vertebral body heights are maintained on sagittal reconstruction images. Impression: 1. 5 millimeter stone in the distal left ureter, just proximal to the left UVJ. 2. There is no associated hydronephrosis, hydroureter, delayed nephrogram, or perinephric inflammatory changes. This may represent the same stone seen in the left proximal ureter on the CT from 11/12/2020. 3. No findings are seen to explain epigastric abdominal pain. 4. Uniform enhancement of the pancreas. No peripancreatic fluid collection. 5. Biliary tree is dilated, likely reservoir effect postcholecystectomy. No common bile duct stone or mass is seen. Please note that all CT scans at this facility use dose modulation, iterative reconstruction, and/or weight-based dosing when appropriate to reduce radiation dose to as low as reasonably achievable. Dictated by Gold Walter MD @ 02/09/2021 5:24:04 PM (Electronically Signed)
== END 2021-02-09 17:40 | disposition home or self-care (01) ==
LOC: MW.ED 13:03
DX: N20.2 Calculus of kidney with calculus of ureter (principal); I10 Essential (primary) hypertension; E66.9 Obesity, unspecified; Z68.41 Body mass index [BMI] 40.0-44.9, adult; Z72.0 Tobacco use; Z20.822 Contact with and (suspected) exposure to COVID-19
CPT/HCPCS: 0240U; 36415; 71045; 74177; 80053; 80307; 82550; 83690; 83735; 84100; 84484; 85025; 87045; 87046; 87449; 87899; 93005; 96374; 96375; 99284; A9270; J1885; J2270; Q9967; 93010

== ENCOUNTER 2023-11-21 15:09 | Emergency (ER) | payer BC | END 2023-11-21 17:02 | disposition home or self-care (01) | LOC: MW.ED 15:09 | DX: S91.202A Unspecified open wound of left great toe with damage to nail, initial encounter (principal); I10 Essential (primary) hypertension; E66.9 Obesity, unspecified; Z90.49 Acquired absence of other specified parts of digestive tract; Z68.42 Body mass index [BMI] 45.0-49.9, adult; W26.8XXA Contact with other sharp object(s), not elsewhere classified, initial encounter | CPT/HCPCS: 11730; 99283; 99283-25 ==